=== PATIENT | female | born 1945 | race Caucasian/White ===

== ENCOUNTER → 2018-03-21 | Outpatient (CLI) | payer MEDICARE, OTHER ==
--- NOTE | 2018-03-21 16:13 | CT ---
EXAM DESCRIPTION: Abdoment/Pelvis w/o Contrast CLINICAL HISTORY: 72 years Female, hernia and abdominal pain. COMPARISON: None available. TECHNIQUE: Contiguous 3 mm axial images were obtained from the lung bases to the level of the proximal femora without the administration of intravenous or oral contrast. Sagittal and coronal reconstructions were reviewed. FINDINGS: Limited evaluation of the solid organs due to the lack of intravenous contrast. THORAX: Mild subsegmental atelectasis is noted in the bilateral lung bases. LIVER: The liver demonstrates normal size and density with no intrahepatic biliary ductal dilatation. GALLBLADDER: Surgically absent. PANCREAS: Appears normal with no cystic or solid lesions. SPLEEN: Normal ADRENAL GLANDS: Normal with no nodules or masses. KIDNEYS: Nonobstructive 5.3 mm calculus is noted in the inferior pole of the left kidney. No hydronephrosis or perinephric fluid collections bilaterally. The visualized ureters appear grossly unremarkable. STOMACH: The stomach is well-distended with no gross abnormality. SMALL BOWEL: The small bowel loops demonstrate variable degrees of distention with no abnormal dilatation or other signs to suggest bowel obstruction. LARGE BOWEL: Moderate to large amount of fecal material is noted throughout the colon consistent with constipation. Multiple diverticuli are identified with no acute inflammation. The appendix is not definitely visualized. No evidence of free intraperitoneal air or fluid. RETROPERITONEUM: The abdominal aorta is nonaneurysmal with moderate atherosclerosis. The inferior vena cava is normal in size and caliber. No abnormally enlarged retroperitoneal lymph nodes are identified. URINARY BLADDER:The urinary bladder is well-distended with no gross abnormality. The uterus and ovaries are surgically absent. ADDITIONAL FINDINGS: 8.6 x 5.4 cm midline lower abdominal wall defect is noted with herniation of intraperitoneal fat and small bowel loops. However no bowel obstruction or strangulation. BONES: Moderate to severe degenerative changes are identified in the visualized bones. Minimal anterolisthesis of L4 over L5 is noted. IMPRESSION: 8.6 x 5.4 cm midline lower abdominal wall defect is noted with herniation of intraperitoneal fat and small bowel loops. However no bowel obstruction or strangulation. Nonobstructive 5.3 mm calculus is noted in the inferior pole of the left kidney. Constipation. Colonic diverticulosis. This exam was performed according to our departmental dose-optimization program, which includes automated exposure control, adjustment of the mA and/or kV according to patient size and/or use of iterative reconstruction technique. Electronically signed by: Samaria Raymond MD 03/21/2018 4:11 PM CDT
== END ==
LOC: CT 09:42
PROVIDERS: ATTEND Surgery
DX: K43.9 Ventral hernia without obstruction or gangrene (principal); N20.0 Calculus of kidney; K59.00 Constipation, unspecified; K57.30 Diverticulosis of large intestine without perforation or abscess without bleeding

== ENCOUNTER → 2018-04-26 | Outpatient (CLI) | payer MEDICARE, OTHER | LOC: LAB.O 09:44 | PROVIDERS: ATTEND Internal Medicine Hematology & Oncology | DX: D50.8 Other iron deficiency anemias (principal); D64.9 Anemia, unspecified; D63.1 Anemia in chronic kidney disease ==

== ENCOUNTER → 2019-03-03 | Outpatient (CLI) | payer MEDICARE | LOC: GOCC 08:29 | PROVIDERS: ATTEND General Practice | DX: R30.0 Dysuria (principal) ==

== ENCOUNTER 2019-07-05 08:26 | Emergency (ER) | payer MEDICARE, OTHER ==
[2019-07-05 08:40] VITALS: TEMP 97.3
[2019-07-05] MEDS ORDERED: SODIUM CHLORIDE 0.9% (FLUSH) 10 ML SYG IV PRN (08:41)
--- NOTE | 2019-07-05 08:48 | ED.PDOC ---
History of Present Illness - General Chief Complaint: Neuro Symptoms/Deficits Stated Complaint: Poss CVA, R arm weakness, L headed, diff speech Time Seen by Provider: 07/05/19 08:37 Source: patient, RN notes reviewed, Vital Signs reviewed, EMS notes reviewed, family Exam Limitations: no limitations - History of Present Illness Initial Comments: Pt is a 74 yo female with PMH of CRI, HTN, DM who presents to ED via EMS from [place] for slurred speech and right arm weakness. States at 7:45 she was in her room and playing on her IPad and noticed weakness to RUE and then noticed difficulty in her speech and was brought to ED. Pt denies any previous similar episodes. Denies CP, SOB, fever, abdominal pain, nausea or viision changes. States she fell 1 week ago and has had an intermitent diffuse MARCELINO over the past week. Denies taking blood thinners, other recent trauma or h/o GI bleed. Timing/Duration: 1 hour Allergies/Adverse Reactions: Allergies Adhesive tape Allergy (Uncoded 07/05/19 09:00) Home Medications: Ambulatory Orders Acetaminophen [Tylenol] 1,000 mg PO Q8H 07/05/19 Bumetanide 2 mg PO BID 07/05/19 Carvedilol 12.5 mg PO BID 07/05/19 Cranberry (Vaccinium Macrocarp [Cranberry] 400 mg PO DAILY 07/05/19 Fexofenadine HCl [Melissa Allergy] 180 mg PO DAILY 07/05/19 Folic Acid 1 mg PO DAILY 07/05/19 Gabapentin 100 mg PO DAILY 07/05/19 Gabapentin 300 mg PO QPM 07/05/19 Lactobacillus [Acidophilus Lactobacilli] 1 cap PO DAILY 07/05/19 Multiple Vitamins W/ Minerals [Ocuvite Lutein] 1 cap PO DAILY 07/05/19 Sevelamer Carbonate 800 mg PO DAILY 07/05/19 cloNIDine PATCH 0.1MG/24HR [[id number]-[id number]-8 Patch] 0.1 mg TOP Q7D 07/05/19 Review of Systems - Review of Systems Constitutional: States: weakness - Right arm. Denies: chills, fever EENTM: Denies: blurred vision, double vision, nose congestion, throat pain Respiratory: Denies: cough, short of breath, wheezing Cardiology: Denies: chest pain, edema, palpitations, syncope Gastrointestinal/Abdominal: Denies: abdominal pain, nausea, vomiting Genitourinary: States: no symptoms reported Musculoskeletal: Denies: back pain, neck pain Skin: States: no symptoms reported Neurological: States: headache. Denies: paresthesia, seizure Hematologic/Lymphatic: Denies: easy bleeding All other Systems: Reviewed and Negative Family Medical History - Family History Mother Family History: Unknown Living Status: Physical Exam - Physical Exam General Appearance: Alert, Comfortable, No apparent distress Eye Exam: bilateral normal - PERRL, EOM intact bilaterally ENT Exam: normal ENT inspection Neck: non-tender, full range of motion, supple Respiratory: chest non-tender, lungs clear, normal breath sounds, no respiratory distress Cardiovascular/Chest: normal peripheral pulses, regular rate, rhythm, no edema, no murmur Gastrointestinal/Abdominal: non tender, soft, no pulsatile mass Back Exam: no CVA tenderness, no vertebral tenderness Extremities Exam: non-tender, no evidence of injury, no edema Mental Status: alert Skin Exam: normal color, warm/dry Comments: NIHSS of 3 with mild right facial palsy(+1), Dysarthria(+1), and Mild Expressive Aphasia(+1)= 3 Progress - Progress Progress: 07/05/19 09:03 Pt prresents with slurred speech and RUE weakness onset at 7:45. RUE weakness has resolved. Continues to have expressive aphasia, dysarthria and mild right facial droop. Emergent CT Head performed and will consult Tele[facility]uro. 07/05/19 09:29 I have d/w Dr. Fernandez, neurologist at [facility] via transfer line. Recommends to given aspirin and observe for 30 minutes. If speech not improving, recommends 3/4 the normal dose of tPA due to chronic kidney disease. 07/05/19 10:04 Pt has no RUE weakness and mild improvement with right facial droop. Continues to have expressive aphasia and dysarthria. I again discussed with Dr. Fernandez. 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 Dr. Fernandez does not recommend tPA at this time and recommends giving a total of 3 aspirin(975 mg). I have d/w pt that she is not a candidate for tPA at this time. Pt agrees with aspirin and transfer to higher level of care. I have d/w Dr. Garland, hospitalist at [facility], who accepts transfer. - Results/Orders Results/Orders: CT BRAIN IMPRESSION: 1. No acute intracranial abnormality. (It should be noted that acute infarct may not be discernible in the first [address]) a follow-up head ct or mri is recommended if neurologic symptoms persist. 2. Volume loss, greater than expected for age, can occur in patient's with history of alcohol abuse or chronic use of certain medications such as dilantin. Premature dementia also a consideration in older patients. 3. Nonspecific white matter lucency, most likely deep white matter ischemic changes. Demyelination and gliosis also in the differential. 4. ASVD in the carotid siphons, vertebral arteries and distal left MCA or proximal branch. 5. Remainder of findings as discussed above. Electronically signed by: Nuzhat Young MD 07/05/2019 9:49 AM WEAVING PROFESSOR ducts: On here END ADDENDUM CHEST XRAY IMPRESSION: No significant acute cardiopulmonary abnormality. Remainder of findings as described above. 07/05/19 08:41 Sodium Chloride 0.9% (Flush) [Saline Flush Syringe] 10 ml IV PRN PRN 07/05/19 08:45 EKG STAT Laboratory Results - last 24 hr 07/05/19 07/05/19 07/05/19 08:51 08:51 08:51 WBC 1.8 L* RBC 3.41 L Hgb 10.3 L Hct 32.5 L MCV 95.1 MCH 30.1 MCHC 31.7 L RDW 18.1 H Plt Count 209 MPV 7.7 Absolute Neuts (auto) 0.50 L Absolute Lymphs (auto) 0.60 L Absolute Monos (auto) 0.40 Absolute Eos (auto) 0.30 Absolute Basos (auto) 0.00 Neutrophils % 25.6 L Lymphocytes % 33.6 Monocytes % 22.1 H Eosinophils % 16.4 H Basophils % 2.3 H PT 9.9 INR 1.00 PTT (SP) 22.7 Sodium 139 Potassium 4.7 Chloride 104 Carbon Dioxide 25 Anion Gap 14.7 BUN 59 H Creatinine 3.64 H BUN/Creatinine Ratio 16.2 POC Glucose Random Glucose 118 H Serum Osmolality 295.2 H Calcium 10.1 Total Bilirubin 0.5 AST 16 ALT 10 Alkaline Phosphatase 84 Creatine Kinase 66 CK-MB (CK-2) 4.8 H* CK-MB (CK-2) % 7.27 H Troponin I 0.02 Serum Total Protein 6.2 L Albumin 3.2 Globulin 3.0 Albumin/Globulin Ratio 1.1 07/05/19 08:51 WBC RBC Hgb Hct MCV MCH MCHC RDW Plt Count MPV Absolute Neuts (auto) Absolute Lymphs (auto) Absolute Monos (auto) Absolute Eos (auto) Absolute Basos (auto) Neutrophils % Lymphocytes % Monocytes % Eosinophils % Basophils % PT INR PTT (SP) Sodium Potassium Chloride Carbon Dioxide Anion Gap BUN Creatinine BUN/Creatinine Ratio POC Glucose 104 Random Glucose Serum Osmolality Calcium Total Bilirubin AST ALT Alkaline Phosphatase Creatine Kinase CK-MB (CK-2) CK-MB (CK-2) % Troponin I Serum Total Protein Albumin Globulin Albumin/Globulin Ratio - EKG/XRAY/CT EKG: Sinus, no ST T wave changes Comments: NSR, rate 70, nml intervals CT Ordered: Yes - CT BRAIN CT Interpretation Call Back: Yes - No acute bleed Stroke Information - Onset of Symptoms Symptoms of Stroke: Aphasia, Weakness of limb Stroke Onset of Symptoms Date: 07/05/19 Stroke Onset of Symptoms Time: 07:45 - Contraindications Antithrombotic Contraindication: Medical Care Complication - CKD, fistula, improvement of symptoms Departure - Departure Clinical Impression: Acute CVA (cerebrovascular accident), Essential hypertension CKD (chronic kidney disease) Qualifiers: Chronic kidney disease stage: unspecified stage Qualified Code(s): N18.9 - Chronic kidney disease, unspecified Leukopenia Qualifiers: Leukopenia type: unspecified Qualified Code(s): D72.819 - Decreased white blood cell count, unspecified Time of Disposition: 10:14 Disposition: Transfer to Hospital Condition: Fair Activity: increase activity as tolerated Referrals: ALMA DELIA LÓPEZ [Primary Care Provider] - 1-2 Weeks Home Medications: Ambulatory Orders Acetaminophen [Tylenol] 1,000 mg PO Q8H 07/05/19 Bumetanide 2 mg PO BID 07/05/19 Carvedilol 12.5 mg PO BID 07/05/19 Cranberry (Vaccinium Macrocarp [Cranberry] 400 mg PO DAILY 07/05/19 Fexofenadine HCl [Melissa Allergy] 180 mg PO DAILY 07/05/19 Folic Acid 1 mg PO DAILY 07/05/19 Gabapentin 100 mg PO DAILY 07/05/19 Gabapentin 300 mg PO QPM 07/05/19 Lactobacillus [Acidophilus Lactobacilli] 1 cap PO DAILY 07/05/19 Multiple Vitamins W/ Minerals [Ocuvite Lutein] 1 cap PO DAILY 07/05/19 Sevelamer Carbonate 800 mg PO DAILY 07/05/19 cloNIDine PATCH 0.1MG/24HR [Ikzdbzwy-HRE-7 Patch] 0.1 mg TOP Q7D 07/05/19 Comments: Pt presents with signs of acute ischemic CVA with RUE weakness, right facial droop and aphasia and dysarthria. Weakness is improved. Continues to have mild speech deficits and discussed with neurology and ultimately felt not a tPA candidate. Given total of 975 mg aspirin and IV Labetalol. Will transfer for neurology and services not available. Critical Care Note - Critical Care Note Total Time (mins): 35 Comments: Pt presents with signs of acute ischemic stroke. Multiple re evaluations for improvement. BP monitored and treated with IV medications. Transfer to Outside Facility - Transfer Information Decision to Transfer Date: 07/05/19 Decision to Transfer Time: 10:11 Reason for Transfer: specialized care not available Accepting Provider:: Dr. Garland Accepting Facility: [facility]
[2019-07-05] MEDS ORDERED: LABETALOL INJ 5 MG/ML VIAL IV ONE (09:27)
[2019-07-05] MEDS ORDERED: ASPIRIN TABLET 325 MG TAB PO ONE ×2 (09:27→10:12)
--- NOTE | 2019-07-05 09:50 | CT ---
PROCEDURE: CT Head Without Intravenous Contrast CLINICAL INDICATION: The patient is 74 years years old, Female; slurred speech TECHNIQUE: Axial computed tomography images of the head/brain without intravenous contrast. Sagittal and coronal reformatted images were created and reviewed. This CT exam was performed using one or more of the following dose reduction techniques: automated exposure control, adjustment of the mA and/or kV according to patient size, and/or use of iterative reconstruction technique. COMPARISON: No relevant prior studies available. FINDINGS: BRAIN: No intracerebral or extracerebral mass lesions are identified. There is mild patchy hypodensity of the cerebral white matter which is nonspecific but likely secondary to chronic microvascular ischemic changes in end vessel distributions. Zuniga/white matter distinction is maintained. There is no evidence of intracranial hemorrhage. There is no evidence of acute territorial infarct. (It should be noted that acute infarct may not be discernible in the first [address] ) MIDLINE SHIFT: There is no shift of the midline structures. VENTRICLES: There is prominence of the ventricles, sulci, cerebellar folia, and basilar cisterns consistent with volume loss, greater than expected for age. BONES/JOINTS: There is no acute calvarial abnormality or other discernible acute osseous abnormalities. SOFT TISSUES: Unremarkable. VASCULATURE: There is atherosclerotic calcification in the siphons of the bilateral internal carotid and vertebral arteries as well as in the distal left MCA or branch along the sylvian fissure. SINUSES: There is mild mucoperiosteal thickening in the bilateral ethmoid sinuses MASTOID AIR CELLS: The mastoids and middle ears are clear. IMPRESSION: 1. No acute intracranial abnormality. (It should be noted that acute infarct may not be discernible in the first [address]) a follow-up head ct or mri is recommended if neurologic symptoms persist. 2. Volume loss, greater than expected for age, can occur in patient's with history of alcohol abuse or chronic use of certain medications such as dilantin. Premature dementia also a consideration in older patients. 3. Nonspecific white matter lucency, most likely deep white matter ischemic changes. Demyelination and gliosis also in the differential. 4. ASVD in the carotid siphons, vertebral arteries and distal left MCA or proximal branch. 5. Remainder of findings as discussed above. Electronically signed by: Nuzhat Young MD 07/05/2019 9:49 AM [facility] ducts: On here
--- NOTE | 2019-07-05 09:52 | RAD ---
EXAM DESCRIPTION: Chest,1 View CLINICAL HISTORY: 74 years Female slurred speech COMPARISON: None TECHNIQUE: Portable AP view of the chest is obtained. FINDINGS IN THE CHEST: Heart: Allowing for magnification factors related to AP portable technique and body habitus, the heart is normal in size and configuration. Vasculature: [There is moderate tortuosity and mild atherosclerosis of the aorta.] There is no evidence of aortic aneurysm or acute findings. The pulmonary vascularity is normal. Mediastinum: No evidence of mass or adenopathy. Lungs: There is elevation of the right hemidiaphragm which is probably congenital eventration. Phrenic nerve injury or palsy also considerations but less likely. There is no focal consolidation in the lungs. There is bibasilar discoid atelectasis or scarring without focal consolidation Pleura: There are no pleural effusions. There are no pneumothoraces. Osseous structures: No evidence of acute fracture, osteolytic lesions or osteoblastic lesions. Bilateral shoulder arthroplasties are present with a reverse shoulder arthroplasty on the left. Tubes and catheters: None Chest wall: Unremarkable. Visualized Abdomen: Unremarkable. IMPRESSION: No significant acute cardiopulmonary abnormality. Remainder of findings as described above. Electronically signed by: Nuzhat Young MD 07/05/2019 9:51 AM FREIGHT ELEVATOR OPERATOR
[2019-07-05 11:13] VITALS: BP 158/58; O2SAT 93
== END 2019-07-05 11:10 | disposition short-term general hospital (02) ==
LOC: ER 08:26
DX: I63.9 Cerebral infarction, unspecified (principal); R47.01 Aphasia; G83.21 Monoplegia of upper limb affecting right dominant side; I12.9 Hypertensive chronic kidney disease with stage 1 through stage 4 chronic kidney disease, or unspecified chronic kidney disease; N18.9 Chronic kidney disease, unspecified; R29.810 Facial weakness; D72.819 Decreased white blood cell count, unspecified; E11.22 Type 2 diabetes mellitus with diabetic chronic kidney disease; R51 Headache; Z79.899 Other long term (current) drug therapy

== ENCOUNTER → 2019-12-07 | Outpatient (CLI) | payer MEDICARE, OTHER | LOC: GOCC 18:40 | PROVIDERS: ATTEND General Practice | DX: R30.0 Dysuria (principal); R82.90 Unspecified abnormal findings in urine ==

== ENCOUNTER 2020-04-01 05:04 | Day surgery (SDC) | payer MEDICARE, OTHER ==
[2020-04-01] MEDS ORDERED: LACTATED RINGERS 1,000 ML ONE (06:29)
[2020-04-01] MEDS ORDERED: BUPIVACAINE 0.5% W/EPI 30 ML VIAL INJ ONE (07:25)
[2020-04-01] MEDS ORDERED: MIDAZOLAM SYRUP 2 MG/ML (10ML) UD ONE (08:10)
[2020-04-01] MEDS ORDERED: SODIUM BICARBONATE VIAL 50 MEQ/50 ML VIAL ONE (08:16)
[2020-04-01] MEDS ORDERED: fentaNYL CITRATE INJ 50 MCG/ML 2 ML AMP ONE (08:33)
--- NOTE | 2020-04-01 09:33 | OP ---
DATE OF PROCEDURE: 04/01/20 PREOPERATIVE DIAGNOSIS: 1. Large lesion on the right adventist. POSTOPERATIVE DIAGNOSIS: 1. Large lesion on the right adventist. PROCEDURE: 1. Excision of mass on the adventist, 4 cm. Excision was 5x3 cm rotational flap and additional 5x4 cm J-flap. SURGEON: Calvin Gabriel MD. ANESTHESIA: Local and IV sedation. FINDINGS: The lesion was fungating. It was larger than initially appeared at its base. It was removed with gross negative margins. The flap was good. Postoperatively, she had all facial nerves intact even with the local anesthesia. INDICATION: As stated. PROCEDURE: In supine position, IV sedation was given. The patient tolerated. Local anesthesia with epinephrine was inserted as well as bicarb. She tolerated the injection well. After marking the lesion and for the flap, elliptical incision was made around the lesion itself and it was excised. We then used a J-type flap along the lateral and going to the medial and inferiorly as there was a lot of extra skin on the cheek. I then trimmed the edge and began our closure with interrupted 4-0 Vicryl sutures, closing the main defect and then closing the created defect. It was then run with 4-0 Prolene. A small portion of glove was placed in the inferior part as a drain, then a dressing was applied. She tolerated the procedure and was taken to Recovery to be discharged. We will remove the drain on Sunday. #[id number] MTDD
[2020-04-01] MEDS ORDERED: ACETAMINOPHEN 500 MG TAB ONE ×2 (10:26→10:30)
[2020-04-01 13:04] VITALS: BP 115/48; TEMP 97.4; O2SAT 94
== END 2020-04-01 10:50 | disposition home or self-care (01) ==
LOC: AMB 05:04
PROVIDERS: ATTEND Surgery
DX: C44.319 Basal cell carcinoma of skin of other parts of face (principal); E11.9 Type 2 diabetes mellitus without complications; I10 Essential (primary) hypertension; D64.9 Anemia, unspecified; Z90.710 Acquired absence of both cervix and uterus; Z87.19 Personal history of other diseases of the digestive system; Z87.442 Personal history of urinary calculi; Z79.82 Long term (current) use of aspirin; Z79.899 Other long term (current) drug therapy
CPT/HCPCS: 00300; 14040; 36416; 82948; 88305; J3010; J7120